=== PATIENT | male | born 1990 | race Caucasian/White ===

== ENCOUNTER 2018-12-30 14:20 | Emergency (ER) | payer OTHER ==
[~2018-12-30] VITALS: Ht 172.7 cm; Wt 76.1 kg
[2018-12-30 14:21] VITALS: BP 136/83
[2018-12-30] MEDS ORDERED: dayquil (14:26)
[2018-12-30] MEDS ORDERED: AZITHROMYCIN 250 MG TAB PO ONE (15:00)
[2018-12-30] MEDS ORDERED: ZITHTAB PO (15:09)
[2018-12-30] MEDS ORDERED: PRED20TA PO (15:09)
== END 2018-12-30 15:11 | disposition home or self-care (01) ==
LOC: M ED 14:20
DX: J03.90 Acute tonsillitis, unspecified (principal); Z88.0 Allergy status to penicillin; F17.210 Nicotine dependence, cigarettes, uncomplicated

== ENCOUNTER → 2020-07-30 | Outpatient (CLI) | payer SELFPAY ==
[~2020-07-30] MED LIST: PRED20TA PO; ZITHTAB PO; dayquil
== END ==
LOC: M LABSMTC 10:08
PROVIDERS: ATTEND Pediatrics
DX: Z20.822 Contact with and (suspected) exposure to COVID-19 (principal)